=== PATIENT | female | born 1985 | race Caucasian/White ===

== ENCOUNTER 2020-08-11 14:17 | Inpatient (IN) ==
[2020-08-11] MEDS ORDERED: MAGNESIUM SULF DRIP 40 GM/1,000 ML ML IV SCH (14:30)
[2020-08-11] MEDS ORDERED: CALCIUM GLUCONATE 1,000 MG in SODIUM CHLORIDE 0.9% 100 ML IV PRN (14:30)
[2020-08-11] MEDS ORDERED: MAGNESIUM SULF RIDER 100 ML IV ONE (14:30)
[2020-08-11] MEDS: LACTATED RINGERS 1,000 ML IV SCH ×2 (15:03→23:25)
[2020-08-11] MEDS: AMPICILLIN INJ 2,000 MG in SODIUM CHLORIDE 0.9% 100 ML IV SCH ×2 (15:03→21:35)
[2020-08-11 15:48] LABS: Bacteria,Urine Occasional /HPF (Few); Bilirubin,Urine Negative (Negative); Blood, Urine Negative (Negative); Glucose,Urine (UA) Negative (Negative); Ketones,Urine Negative (Negative); Mucus,Urine Occasional /LPF (Occasional); Nitrite,Urine Negative (Negative); Protein,Urine Negative; RBC,Urine 2 /HPF (0-4); Squamous Epithelial Cell,Urine Occasional /HPF (0-10); Urine Appearance CLEAR (Clear); Urine Color Yellow (Yellow); Urine Urobilinogen < 2.0 EU/DL (0.2-1.0); WBC,Urine 48 /HPF (0-6)
[2020-08-11 16:15] LABS: Barbiturates Screen,Urine Negative (Negative); Benzodiazepines Screen,Urine Negative (Negative); Cannabinoid Screen,Urine Positive (Negative); Opiate Screen,Urine Negative (Negative); Phencyclidine Screen,Urine Negative (Negative)
[2020-08-11 16:42] LABS: Calcium 8.5 MG/DL (8.5-10.1); Osmolality,Calculated 269.1 MOS/KG (273-304)
[2020-08-11] MEDS: BETAMETH SODIUM PHOS/ACETATE 30 MG/5 ML VIAL IM SCH (16:51)
[2020-08-11] MEDS: SIMETHICONE CHEW 80 MG TABLET PO PRN ×2 (17:11→22:10)
[2020-08-11] MEDS ORDERED: LABETALOL 100 MG/20 ML VIAL IV PRN ×2 (17:47)
[2020-08-11] MEDS ORDERED: LABETALOL 20 MG/4 ML SYRINGE IV PRN (17:47)
[2020-08-11] MEDS: LABETALOL 200 MG TABLET PO SCH (18:14)
[2020-08-11 18:31] LABS: Basophils % 0.4 % (0.0-0.8); Eosinophils # 0.1 10*3/uL (0.0-0.87); Eosinophils % 0.7 % (0.00-10.9); Hemoglobin 11.4 GM/DL (12.0-16.0); Immature Granulocytes Absolute 0.11 #; Lymphocytes # 2.4 10*3/uL (1.4-4.0); Lymphocytes % 21.3 % (21.3-54.2); Mean Corpuscular HGB Conc 33.5 GM/DL (32-36); Mean Corpuscular Volume 83.1 FL (87-102); Mean Platelet Volume 10.8 FL (9.6-12.0); Monocytes % 4.5 % (1.7-12.7); Neutrophils % 72.1 % (38.7-73.9); Platelet Count 248 T/CUMM (130-400); Red Blood Count 4.09 MC/CUMM (3.8-5.5); Red Cell Distribution Width 13.6 % (9.3-17.3); White Blood Count 11.2 T/CUMM (4-12)
[2020-08-11 18:46] LABS: Bilirubin,Direct < 0.100 MG/DL (0.0-0.20); Uric Acid 5.1 MG/DL (2.6-6.0)
[2020-08-11 18:51] LABS: INR 0.9; PT Patient Result 9.9 SECS (9.8-11.9); Partial Thromboplastin Time 25.4 SECS (23.9-33.8)
[2020-08-12] MEDS: LABETALOL 200 MG TABLET PO SCH ×3 (02:45→17:56)
[2020-08-12] MEDS: MAGNESIUM HYDROXIDE SUSP 30 ML UDCUP PO PRN (02:56)
[2020-08-12] MEDS: AMPICILLIN INJ 2,000 MG in SODIUM CHLORIDE 0.9% 100 ML IV SCH ×4 (03:20→21:01)
[2020-08-12] MEDS: PANTOPRAZOLE 40 MG VIAL IV SCH (09:26)
[2020-08-12] MEDS: BETAMETH SODIUM PHOS/ACETATE 30 MG/5 ML VIAL IM SCH (17:56)
[2020-08-13] MEDS: LABETALOL 200 MG TABLET PO SCH ×3 (02:06→17:47)
[2020-08-13] MEDS ORDERED: MORPHINE 10 MG/10 ML VIAL ONE (06:52)
[2020-08-13] MEDS ORDERED: DEXAMETHASONE 4 MG/1 ML VIAL ONE ×2 (06:52→07:09)
[2020-08-13] MEDS ORDERED: ONDANSETRON 4 MG/2 ML VIAL ONE ×2 (06:52→06:54)
[2020-08-13] MEDS ORDERED: BUPIVACAINE SPINAL 0.75% 2 ML AMP SPINAL ONE (06:59)
[2020-08-13] MEDS ORDERED: ceFAZolin 2,000 MG in PREMIX 1 EACH IV ONE (07:00)
[2020-08-13] MEDS ORDERED: FAMOTIDINE 20 MG/2 ML VIAL IV ONE (07:00)
[2020-08-13] MEDS ORDERED: CITRIC ACID/SODIUM CITRATE 30 ML UDCUP PO ONE (07:00)
[2020-08-13] MEDS ORDERED: OXYTOCIN/LR 20 UNIT/1,000 ML BAG IV ONE ×2 (07:05→08:26)
[2020-08-13] MEDS ORDERED: miSOPROStoL 200 MCG TABLET ONE (07:05)
[2020-08-13] MEDS ORDERED: TRANEXAMIC ACID 1,000 MG/10 ML VIAL ONE (07:05)
[2020-08-13] MEDS ORDERED: CARBOPROST TROMETHAMINE 250 MCG/ML AMP IM ONE (07:06)
[2020-08-13] MEDS ORDERED: METHYLERGONOVINE 0.2 MG/1 ML AMP ONE (07:06)
[2020-08-13] MEDS ORDERED: BUPIVACAINE MPF 0.25% 30 ML VIAL ONE (07:08)
[2020-08-13] MEDS ORDERED: fentaNYL 100 MCG/2 ML VIAL ONE (07:41)
[2020-08-13 08:07] LABS: Cord Venous Blood PCO2 42.8 MMHG; Cord Venous Blood PO2 21.2 MMHG
[2020-08-13] MEDS ORDERED: KETOROLAC 30 MG/1 ML VIAL ONE (08:09)
[2020-08-13 08:13] LABS: Bacteria,Urine Occasional /HPF (Few); Bilirubin,Urine Negative (Negative); Blood, Urine Negative (Negative); Glucose,Urine (UA) Negative (Negative); Ketones,Urine Negative (Negative); Nitrite,Urine Negative (Negative); Protein,Urine Negative; RBC,Urine 2 /HPF (0-4); Squamous Epithelial Cell,Urine Occasional /HPF (0-10); Urine Appearance CLEAR (Clear); Urine Color Straw (Yellow); Urine Specific Gravity 1.011 (1.001-1.035); Urine Urobilinogen < 2.0 EU/DL (0.2-1.0); WBC,Urine 2 /HPF (0-6)
[2020-08-13] MEDS ORDERED: LANOLIN 50% CREAM 0.3 OZ TUBE TOP PRN (08:26)
[2020-08-13] MEDS ORDERED: BISACODYL 10 MG SUPP RECTAL PRN (08:26)
[2020-08-13] MEDS ORDERED: BENZOCAINE 20%/MENTHOL 0.5% SPRAY 56 GM CAN TOP PRN (08:26)
[2020-08-13] MEDS ORDERED: ACETAMINOPHEN 325 MG TABLET PO PRN (08:26)
[2020-08-13] MEDS ORDERED: WITCH HAZEL PADS 100/JAR TOP PRN (08:26)
[2020-08-13] MEDS ORDERED: HYDROCORTISONE 2.5% RECTAL CREAM 30 GM TUBE TOP PRN (08:26)
[2020-08-13] MEDS ORDERED: DIPH/TET/ACEL PERT BOOSTER VACCINE 0.5 ML VIAL IM ONE (08:26)
[2020-08-13] MEDS ORDERED: RHO(D) IMMUNE GLOBULIN 300 MCG SYRINGE IM ONE (08:26)
[2020-08-13] MEDS ORDERED: MEASLES/MUMPS/RUBELLA VACCINE 0.5 ML VIAL SUBCUT ONE (08:26)
[2020-08-13] MEDS ORDERED: oxyCODONE/ACETAMINOPHEN 5-325 MG TABLET PO PRN (08:26)
[2020-08-13] MEDS: PANTOPRAZOLE 40 MG VIAL IV SCH (09:33)
[2020-08-13] MEDS: DOCUSATE SODIUM 100 MG CAPSULE PO SCH ×2 (09:39→20:44)
[2020-08-13] MEDS: AMPICILLIN INJ 2,000 MG in SODIUM CHLORIDE 0.9% 100 ML IV SCH ×2 (09:56→09:57)
[2020-08-13] MEDS ORDERED: diphenhydrAMINE 50 MG/1 ML VIAL IV PRN (13:45)
[2020-08-13] MEDS ORDERED: ceFAZolin 1,000 MG in SYRINGE 1 EACH IV SCH (15:30)
[2020-08-13] MEDS: LACTATED RINGERS 1,000 ML IV SCH (15:46)
[2020-08-13] MEDS: ONDANSETRON 4 MG/2 ML VIAL IV PRN (20:24)
[2020-08-13] MEDS: oxyCODONE/ACETAMINOPHEN 5-325 MG TABLET PO PRN (20:44)
[2020-08-13] MEDS ORDERED: hydrOXYzine HCL 25 MG/1 ML VIAL IM PRN (20:48)
[2020-08-14] MEDS: LABETALOL 200 MG TABLET PO SCH ×2 (01:32→09:51)
[2020-08-14] MEDS ORDERED: ONDANSETRON 4 MG TABLET PO PRN (05:29)
[2020-08-14] MEDS: oxyCODONE/ACETAMINOPHEN 5-325 MG TABLET PO PRN ×2 (05:32→16:37)
[2020-08-14] MEDS: IBUPROFEN 800 MG TABLET PO PRN ×2 (05:33→16:38)
[2020-08-14] MEDS: ONDANSETRON 4 MG/2 ML VIAL IV PRN (05:35)
[2020-08-14 05:47] LABS: Basophils % 0.2 % (0.0-0.8); Eosinophils # 0.1 10*3/uL (0.0-0.87); Eosinophils % 0.4 % (0.00-10.9); Hematocrit 25.7 VOL% (35.7-47.0); Hemoglobin 8.3 GM/DL (12.0-16.0); Immature Granulocytes % 2.5 %; Immature Granulocytes Absolute 0.37 #; Lymphocytes # 3.5 10*3/uL (1.4-4.0); Lymphocytes % 23.5 % (21.3-54.2); Mean Corpuscular HGB Conc 32.3 GM/DL (32-36); Mean Corpuscular Volume 84.8 FL (87-102); Mean Platelet Volume 11.4 FL (9.6-12.0); Monocytes % 10.6 % (1.7-12.7); Neutrophils % 62.8 % (38.7-73.9); Platelet Count 246 T/CUMM (130-400); Red Blood Count 3.03 MC/CUMM (3.8-5.5); Red Cell Distribution Width 13.9 % (9.3-17.3)
[2020-08-14] MEDS: FERROUS SULFATE 325 MG TABLET PO SCH ×2 (09:50→21:08)
[2020-08-14] MEDS: DOCUSATE SODIUM 100 MG CAPSULE PO SCH ×2 (09:50→21:08)
[2020-08-14] MEDS: LABETALOL 100 MG TABLET PO SCH (17:22)
[2020-08-14] MEDS: MAGNESIUM HYDROXIDE SUSP 30 ML UDCUP PO PRN (21:08)
[2020-08-15] MEDS: LABETALOL 100 MG TABLET PO SCH ×3 (00:06→15:11)
[2020-08-15] MEDS: oxyCODONE/ACETAMINOPHEN 5-325 MG TABLET PO PRN ×4 (00:06→18:23)
[2020-08-15] MEDS: KETOROLAC 30 MG/1 ML VIAL IV SCH ×4 (07:26→19:37)
[2020-08-15] MEDS: DOCUSATE SODIUM 100 MG CAPSULE PO SCH ×3 (07:29→21:04)
[2020-08-15] MEDS: FERROUS SULFATE 325 MG TABLET PO SCH ×3 (07:29→21:04)
[2020-08-15] MEDS: IBUPROFEN 800 MG TABLET PO PRN ×2 (15:12→21:02)
[2020-08-15] MEDS ORDERED: ZALEPLON 5 MG CAPSULE PO PRN (18:37)
[2020-08-16] MEDS: LABETALOL 100 MG TABLET PO SCH ×3 (00:05→15:32)
[2020-08-16] MEDS: IBUPROFEN 800 MG TABLET PO PRN ×3 (04:20→19:25)
[2020-08-16] MEDS: oxyCODONE/ACETAMINOPHEN 5-325 MG TABLET PO PRN ×5 (04:20→19:25)
[2020-08-16] MEDS: KETOROLAC 30 MG/1 ML VIAL IV SCH (04:27)
[2020-08-16] MEDS: MAGNESIUM HYDROXIDE SUSP 30 ML UDCUP PO PRN (07:56)
[2020-08-16] MEDS: FERROUS SULFATE 325 MG TABLET PO SCH ×4 (07:57→21:56)
[2020-08-16] MEDS: SIMETHICONE CHEW 80 MG TABLET PO PRN (07:57)
[2020-08-16] MEDS: DOCUSATE SODIUM 100 MG CAPSULE PO SCH ×4 (07:57→21:56)
[2020-08-16] MEDS ORDERED: DIPH/TET/ACEL PERT BOOSTER VACCINE 0.5 ML VIAL IM ONE (16:47)
[2020-08-16] MEDS ORDERED: INFLUENZA VIRUS VACCINE 0.5 ML SYRINGE IM ONE (16:47)
[2020-08-16 20:09] VITALS: BP 131/80
== END 2020-08-16 21:59 | disposition home or self-care (01) | DRG 540 ==
LOC: N.LDOUT 14:17 → N.LD 14:20 → N.OB 08-13 12:34
PROVIDERS: ADMIT Specialist; ATTEND Specialist
PROC: LDCSECT (ICD-10-PCS; 2020-08-13 07:30)